=== PATIENT | female | born 1945 | race Caucasian/White ===

== ENCOUNTER 2023-02-10 08:19 | Emergency (ER) | payer MEDICARE, BC, SELFPAY ==
--- NOTE | 2023-02-10 08:26 | ED.GENADULT ---
HPI - General Adult General Chief complaint: Unspecified Stated complaint: Left Side Face Swollen Source: patient and RN notes reviewed History of Present Illness HPI narrative: 77 yo F presents to urgent care with swelling and tenderness to her left lower face since . Pt reports a subjective fever yesterday. Pt states she has been taking Advil at home. Denies any toothache, vomiting, chest pain, SOB, or trouble swallowing/breathing. Pt states she had this about a year ago and was given an Abx with good relief. Related Data Home Medications Medication Instructions Recorded Confirmed loratadine 10 mg tablet (Claritin) 10 mg PO DAILY 11/19/19 02/10/23 Allergies Allergy/AdvReac Type Severity Reaction Status Date / Time No Known Allergies Allergy Verified 02/10/23 08:23 Review of Systems Review of Systems: CONSTITUTIONAL: Reports subjective fever yesterday. EYES: Denies visual changes, redness, or discharge. ENT: Denies otalgia and sore throat. Reports swelling to left lower face. CARDIOVASCULAR: Denies chest pain, palpitations, or edema. RESPIRATORY: Denies cough or dyspnea. GASTROINTESTINAL: Denies abdominal pain, nausea, vomiting, or diarrhea. GENITOURINARY: Denies dysuria or hematuria. SKIN: Denies rash or itching. MUSCULOSKELETAL: Denies back pain, joint pain, or myalgia. NEUROLOGIC: Denies headache, numbness, or weakness. Pertinent positives per HPI. [facility]LY [facility], [facility] Family History Family History Father Family history of emphysema Sibling Family history of emphysema Social History Social History (Updated 07/11/22 @ 09:50 by Daisy Steele [facility]) Smoking status: Never smoker Smoking end date: 11/12/94 Alcohol intake: never Substance use: never Substance use type: does not use Comments At the time of my signature, I reviewed and agree with the nursing past medical, surgical, social, and family history. There is no relevant family history pertinent to the patient complaint. Exam Narrative: GENERAL: This is a well-nourished, well-developed patient, in no apparent distress. HEAD: normocephalic, atraumatic. EYES: PERRL. Sclera clear/white. Vision is grossly intact. EARS: External ears normal, auditory canals clear and without drainage, TMs normal without perforation. Hearing grossly intact. NOSE: External nose normal with no obvious nasal discharge, nares without redness, no rhinorrhea. MOUTH/JAW: approximately 2 cm area of swelling to left lower jawline. No significant swelling along gum line or dental caries appreciated. Floor of mouth soft and not lifted. THROAT: Mucous membranes moist, posterior pharynx clear. NECK: Neck supple, non-tender without lymphadenopathy, masses or thyromegaly. CARDIOVASCULAR: Regular rate and rhythm without murmurs, gallops, or rubs. RESPIRATORY: Clear to auscultation. Breath sounds equal bilaterally. No wheezes, rales, or rhonchi. SKIN: warm, intact with no suspicious lesions or rash, good texture and turgor. NEURO: awake, alert, and oriented to person, place and time. There were no obvious focal neurologic abnormalities. Course Course Level of Care: Express Care Visit Vital Signs Vital signs: Vital Signs Temperature 98.6 F 02/10/23 08:35 Pulse Rate 119 H 02/10/23 08:35 Respiratory Rate 24 H 02/10/23 08:35 Blood Pressure 135/65 02/10/23 08:35 Pulse Oximetry 97 02/10/23 08:35 Oxygen Delivery Room Air 02/10/23 08:35 Temperature 98.6 F 02/10/23 08:35 Pulse Rate 119 H 02/10/23 08:35 Respiratory Rate 24 H 02/10/23 08:35 Blood Pressure 135/65 02/10/23 08:35 Pulse Oximetry 97 02/10/23 08:35 Oxygen Delivery Room Air 02/10/23 08:35 reviewed Medical Decision Making MDM Narrative Medical decision making narrative: Finish all antibiotics as directed. Follow-up with your dentist this week. If you develop any new or worsening symptoms you need to go to the emerg
[2023-02-10 08:35] VITALS: BP 135/65; PULSE 119; RESP 24; TEMP 37; O2SAT 97
== END 2023-02-10 08:48 | disposition home or self-care (01) ==
PROVIDERS: Emergency Provider Nurse Practitioner Family; PCP Family Medicine
DX: K04.7 Periapical abscess without sinus (principal)
CPT/HCPCS: 99213; G0463

== ENCOUNTER 2024-05-25 08:06 | Emergency (ER) | payer MEDICARE, BC, SELFPAY ==
--- NOTE | 2024-05-25 08:10 | ED.GENADULT ---
HPI - General Adult General Chief complaint: Skin/Abscess/Foreign Body Stated complaint: left foot pain Time Seen by Provider: 05/25/24 08:10 Source: patient Mode of arrival: ambulatory Limitations: no limitations History of Present Illness HPI narrative: 78-year-old female patient presents to the [facility] with complaints of left foot pain. Patient states she did stub her toe about 3 days ago in the middle night but denies having any pain the next morning. Patient states pain really started yesterday and states that anything hurts to touch it even when her bed she is touching her great toe. Patient states it has been red, warm to the touch. Denies any fevers, body aches or chills. Denies any other trauma to the toe that she can remember. Patient has had her nail removed on the left great toe many many years ago but it does appear that is grown back but not complained of any toenail pain necessarily. When asked about her diet patient states that she does drink diet Coke daily, she yesterday she ate a lot of chocolate, a Mohs pizza, red meats, cheese lot of cheese and crackers. Denies history of diabetes Related Data Allergies Allergy/AdvReac Type Severity Reaction Status Date / Time No Known Allergies Allergy Verified 05/25/24 08:18 Review of Systems Review of Systems: CONSTITUTIONAL: Denies fever, chills, or sweats. EYES: Denies visual changes, redness, or discharge. ENT: Denies rhinorrhea, congestion, sore throat, or otalgia. CARDIOVASCULAR: Denies chest pain, palpitations, or edema. RESPIRATORY: Denies cough or dyspnea. GASTROINTESTINAL: Denies abdominal pain, nausea, vomiting, or diarrhea. GENITOURINARY: Denies dysuria or hematuria. SKIN: Denies rash or itching. MUSCULOSKELETAL: Denies back pain, positive left great toe joint pain,, denies myalgia. NEUROLOGIC: Denies headache, numbness, or weakness. PSYCHIATRIC: Denies anxiety or depression. [facility] Past Medical History Medical History (Updated 05/25/24 @ 08:53 by OTIS Jonas) Chronic obstructive pulmonary disease Essential (primary) hypertension Parotitis Seborrheic keratoses Stricture and stenosis of esophagus Family History Family History Father Family history of emphysema Sibling Family history of emphysema Social History Social History Smoking status: Never smoker Smoking end date: 11/12/94 Alcohol intake: never Substance use: never Substance use type: does not use Lack of Transportation: No Lack of Food: Never True Current Housing: I Have Housing Concerned About Future Housing: No Difficulty Paying Gas/Electric Bills: No Difficulty Paying for Meds: No Currently Unemployed: No Education: Associate Degree Difficulty w/ Childcare or Family Care: No Comments At the time of my signature I agree with nursing past medical history, surgical, social, and family history. There is no relevant family history pertinent to the presenting complaint. Exam Narrative: GENERAL: Well-appearing, well-nourished, and in no acute distress. HEAD: Normocephalic, atraumatic. EYES: PERRLA and EOMI. ENT: Nares clear, no rhinorrhea or epistaxis. Mucous membranes moist. NECK: Supple. No lymphadenopathy CHEST: Clear to auscultation. No respiratory distress. HEART: Regular rate and rhythm. No murmur heard. Normal peripheral pulses. ABDOMEN: Soft, nontender, nondistended, normal active bowel sounds. EXTREMITIES: Patient has inflammation, redness and very tender to the touch of the left MP joint. There is no open wound. There is no specific trauma to the area. Patient does have good range of motion to all told toes. Patient states it does hurt to put pressure on the joint area but is able to walk on the foot. SKIN: Warm, dry, no rash. NEURO: No focal deficits. Alert and oriented x3. Course Course Level of Care: Expre
[2024-05-25 08:18] VITALS: BP 134/80; PULSE 117; RESP 16; TEMP 37.3; O2SAT 99
[2024-05-25 08:19] VITALS: BP 134/80; PULSE 117; RESP 16; TEMP 37.3; O2SAT 99
== END 2024-05-25 08:51 | disposition home or self-care (01) ==
PROVIDERS: Emergency Provider Nurse Practitioner Family; PCP Family Medicine
DX: M10.9 Gout, unspecified (principal); J44.9 Chronic obstructive pulmonary disease, unspecified; I10 Essential (primary) hypertension
CPT/HCPCS: 99213; G0463

== ENCOUNTER 2025-10-13 08:37 | Emergency (ER) | payer MEDICARE, BC, SELFPAY ==
--- NOTE | ~2025-10-13 | XR_ITS ---
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 HX copd COMPARISON: No comparisons available. Technique: 2 views obtained. Findings: The lungs are clear, no effusion. No pneumothorax. Heart is normal size. Mediastinal and hilar contours are within normal limits. Bony thorax no acute abnormality. Impression: No acute cardiopulmonary abnormality. Reviewed, dictated and finalized at location P. 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
--- NOTE | 2025-10-13 08:41 | ED_ITS ---
HPI - URI/Sore Throat General Chief Complaint: Upper Respiratory Infection Stated Complaint: Sinus Time Seen by Provider: 10/13/25 08:50 Source: patient, RN notes reviewed and old records reviewed Mode of arrival: ambulatory Limitations: no limitations History of Present Illness HPI Narrative: 79-year-old female presents to the [facility] with complaints of a sore throat, cough, mucousy productive cough, feeling feverish since Sunday, 3 days. Reports she has taken a cough syrup and some Tylenol. Has a history of hypertension but has not taken medications today, history of COPD. Patient reports the cough is affecting her sleep. Patient denies any chest pain. Any a new shortness of breath. Onset (ago): day(s) (3) Treatments prior to arrival: acetaminophen Related Data Allergies Allergy/AdvReac Type Severity Reaction Status Date / Time No Known Allergies Allergy Verified 10/13/25 08:46 Review of Systems Review of Systems: All systems reviewed & are unremarkable except as noted in HPI and below Constitutional: Constitutional: Reports as per HPI and Reports chills ENT: Reports as per HPI and Reports sore throat Cardiovascular: Cardiovascular: Reports no additional cardiovascular complaints, Denies chest pain and Denies dyspnea Respiratory: Respiratory: Reports as per HPI, Denies chest congestion, Reports cough, Reports excessive phlegm production, Denies pain on inspiration, Denies pain with cough and Denies dyspnea Musculoskeletal: Musculoskeletal: Reports no additional musculoskeletal complaints PMFSH Past Medical History Medical History Bilateral hearing loss due to cerumen impaction Seborrheic keratoses Parotitis Chronic obstructive pulmonary disease Essential (primary) hypertension Stricture and stenosis of esophagus Family History Family History Father Family history of emphysema Sibling Family history of emphysema Social History Social History Smoking status: Never smoker Smoking end date: 11/12/94 Alcohol intake: never Substance use: never Substance use type: does not use Lack of Transportation: No Lack of Food: Never True Current Housing: I Have Housing Concerned About Future Housing: No Difficulty Paying Gas/Electric Bills: No Difficulty Paying for Meds: No Currently Unemployed: No Education: Associate Degree Difficulty w/ Childcare or Family Care: No Comments At the time of my signature, I reviewed and agree with the nursing past medical, surgical, social, and family history. There is no relevant family history pertinent to the patient complaint. Exam Const: General: cooperative, no acute distress, well developed, alert, ill appearing chronically, tired appearing, uncomfortable and well nourished Nutritional Appearance: well nourished Orientation/consciousness: patient oriented x3 Limitations: no limitations HENMT: Head: normal to inspection Ears: hearing grossly normal bilaterally, external ears normal, TM's normal bilaterally, EAC's normal, mastoids normal and no periauricular adenopathy Face/Nose/Sinus: Nasal discharge present clear Face and sinus: normal facial exam, sinuses nontender and face symmetric Mouth: Yes Normal oral and palatal mucosa present, Yes lip normal, Yes tongue normal and Yes moist mucous membranes Throat: uvula midline, postnasal drainage and no uvular edema Eyes: General: appearance normal, both eyes and all related structures Alignment and Position: alignment normal Neck: Neck: normal visual inspection, full ROM, no lymphadenopathy and no meningeal signs Chest: Chest palpation & inspection: normal inspection of the chest Resp: Effort & Inspection: normal respiratory effort and able to speak in complete sentences Auscultation: no crackles, no rales, no rhonchi, no wheezes and diminished lung sounds bilateral in the lower lung sandoval Cardio: Rate: regular rate Skin: General skin exam: normal color and no rashes or lesions noted Neuro: General: patient oriented x3, gait normal, moves all extremities and no meningeal signs Cognition (Neuro): normal cognition Speech: normal speech Gait exam (Neuro): Normal gait present Extrem: General: normal to inspection, full ROM, capillary refill normal and normal gait Psych: Appearance: grossly normal and well kempt Mental Status: mental status grossly normal Speech and movement: Normal speech and movement present and Clear speech present Affect: normal affect Attitude: cooperative Course Course Level of Care: Express Care Visit Vital Signs Vital signs: Vital Signs Temperature 98.8 F 10/13/25 08:48 Pulse Rate 135 H 10/13/25 08:48 Respiratory Rate 16 10/13/25 08:48 Blood Pressure 138/100 H 10/13/25 08:48 Pulse Oximetry 95 10/13/25 08:48 Oxygen Delivery Room Air 10/13/25 08:48 Temperature 98.8 F 10/13/25 08:48 Pulse Rate 135 H 10/13/25 08:48 Respiratory Rate 16 10/13/25 08:48 Blood Pressure 138/100 H 10/13/25 08:48 Pulse Oximetry 95 10/13/25 08:48 Oxygen Delivery Room Air 10/13/25 08:48 Reviewed MDM MDM Narrative Medical decision making narrative: patient sitting in exam room. Patient is nontoxic, vitals are stable. Patient presents for cough, sore throat, feeling feverish and chills. Symptoms for 3 day patient has a history of hypertension, has not taken her medications. Has a history of COPD. Patient is flu COVID strep are negative, will culture chest x-ray does not show signs of pneumonia. Patient most likely with a COPD exacerbation, will give doxy, patient has inhalers. Patient educated on the importance of taking her medications on the same time every day. Discussed safe [id number] medications to help her symptoms Patient is appropriate for outpatient treatment with very close follow-up. Discharge instructions reviewed with patient, as well as provided in writing per nursing staff. The instructions also include specific and strict return/GO TO THE ER as well as f/u information. All questions have been answered, and the patient deny any further questions with discharge and discharge plan. Some parts of this dictation were generated by voice recognition software and may contain typographical and/or grammatical inaccuracies. Differential Diagnosis Differential Diagnosis: pneumonia, flu, COVID, strep, bronchitis, COPD exacerbation Medical Records I have reviewed the following patient records and this information was taken into consideration when formulating the assessment and plan.: previous clinic visits Lab Data Labs: Lab Results 10/13/25 Range/Units 08:55 POC Influenza A Ag Negative (Negative) POC Influenza B Ag Negative (Negative) POC SARS CoV-2 Ag Negative (Negative) POC Grp A Strep Screen Negative (Negative) reviewed Imaging Data Radiologist's impression: ITS Impressions Chest X-Ray 10/13/25 09:19 Impression: No acute cardiopulmonary abnormality. Critical Care Time Critical Care Time Critical Care Time: No Discharge Plan Discharge Clinical Impression: COPD (chronic obstructive pulmonary disease) with acute bronchitis Patient Disposition: Home Condition: Stable Instructions: Antibiotic Form, COPD (Chronic Obstructive Pulmonary Disease) (ED), Chronic Bronchitis (ED) Additional Instructions: Your rapid strep swab was negative today at [facility]. A throat culture will be sent to the laboratory for further testing. If the test is positive, you will receive a phone call within 48 hours and an appropriate antibiotic will be initiated at that time. Your rapid COVID test were negative Your rapid flu test was negative It is very important to treat your symptoms. Drink plenty of water, Gatorade, Pedialyte, ice pops or Jell-O. -Alternate Tylenol and Motrin per package directions for fever or pain. You can alternate every 4 hours -Antihistamine medication such as Zyrtec/Claritin during the day can help improve symptoms. -doing daily nasal irrigations can help relieve pressure your sinuses. Things l campos a Neti pot -Use Flonase daily to help reduce the inflammation and dry up your sinuses. -You can also use Coricidin HBP or Mucinex. Be sure to drink plenty of water with this medication at least 8 ounces with every dose and it is important to drink 8 to 10 glasses of water per day. Water is a natural decongestant -Eat and drink things that are easy to swallow, like tea or soup, or popsicles. -Oral rinses such as: Salt water gargles and/or may use topical anesthetic (eg. Chloraseptic spray) or lozenges to relieve dryness or throat pain). -Frequent hand washing or hand deputy attorney general is one of the best ways to prevent spread of infection. -Using a vaporizer or humidifier at night will also help thin secretions and help with coughing up phlegm. -Follow up with primary care provider in 7-10 days if condition is not improving - For new or worsening symptoms go directly to the nearest ER Patient Language: Turkmen Prescriptions: New doxycycline monohydrate 100 mg tablet 100 mg PO BID Qty: 14 0RF No Action loratadine [Claritin] 10 mg tablet 10 mg PO DAILY Qty: 90 3RF Atrovent HFA 17 mcg/actuation HFA aerosol inhaler 2 puff inhalation TID Qty: 12.9 5RF amlodipine 10 mg tablet See Rx Instructions .ROUTE .COMPLEX Qty: 90 1RF Dose Instruction: TAKE 1 TABLET BY MOUTH DAILY Rx Instructions: TAKE 1 TABLET BY MOUTH DAILY triamterene-hydrochlorothiazid 37.5-25 mg capsule See Rx Instructions .ROUTE .COMPLEX Qty: 90 1RF Dose Instruction: TAKE 1 CAPSULE BY MOUTH DAILY Rx Instructions: TAKE 1 CAPSULE BY MOUTH DAILY fluticasone propion-salmeterol 250-50 mcg/dose blister with device See Rx Instructions .ROUTE .COMPLEX Qty: 180 1RF Dose Instruction: INHALE 1 PUFF BY MOUTH TWICE DAILY Rx Instructions: INHALE 1 PUFF BY MOUTH TWICE DAILY Follow-up/Referrals: Leonides Gomez MD [Primary Care Provider, Family Practice] - 2 Weeks Clinical Impression: COPD (chronic obstructive pulmonary disease) with acute bronchitis Stand Alone Forms: Work/School Release IP Time of Disposition: 09:23
[2025-10-13 08:48] VITALS: BP 138/100; PULSE 135; RESP 16; TEMP 37.1; O2SAT 95
[2025-10-13 09:08] LABS: EDSTREPNEGPOS1 Negative (Negative)
[2025-10-13 09:18] LABS: EDCOVIDSCREEN Negative (Negative); EDINFLUASCREEN Negative (Negative); EDINFLUBSCREEN Negative (Negative)
== END 2025-10-13 09:30 | disposition home or self-care (01) ==
PROVIDERS: Emergency Provider Nurse Practitioner; PCP Family Medicine
DX: J44.0 Chronic obstructive pulmonary disease with (acute) lower respiratory infection (principal); Z20.822 Contact with and (suspected) exposure to COVID-19; I10 Essential (primary) hypertension; Z87.891 Personal history of nicotine dependence
CPT/HCPCS: 71046; 87081; 87426; 87804; 87880; 99213; G0463